=== PATIENT | female | born 1955 | race Caucasian/White ===

== ENCOUNTER → 2024-07-24 09:08 | Outpatient (BNVA) | payer MEDICARE, BC, SELFPAY | PROVIDERS: Referring Provider Family Medicine; Visit Provider Internal Medicine | DX: M81.0 Age-related osteoporosis without current pathological fracture (principal); L60.3 Nail dystrophy; E55.9 Vitamin D deficiency, unspecified | CPT/HCPCS: 99204 ==

== ENCOUNTER → 2025-06-23 11:33 | Outpatient (BNVA) | payer MEDICARE, BC, SELFPAY | PROVIDERS: PCP Family Medicine; Visit Provider Internal Medicine | DX: E11.9 Type 2 diabetes mellitus without complications (principal); M81.0 Age-related osteoporosis without current pathological fracture; L60.3 Nail dystrophy | CPT/HCPCS: 36415; 80053; 82306; 82310; 83970; 84439; 84443 ==

== ENCOUNTER 2025-07-21 13:38 | Oncology outpatient (recurring) (ONCR) | payer MEDICARE, BC, SELFPAY ==
[2025-07-21] MEDS: denosumab 60 mg SDV (Infusion Clinic Only) SUBCUT (14:07)
[2025-07-21 14:16] VITALS: BP 164/72; PULSE 62; RESP 16; TEMP 36.8; O2SAT 96
== END 2025-07-28 23:59 | disposition home or self-care (01) ==
PROVIDERS: PCP Family Medicine; Visit Provider Internal Medicine
DX: M81.0 Age-related osteoporosis without current pathological fracture (principal); Z79.899 Other long term (current) drug therapy
CPT/HCPCS: 96372; J0897